=== PATIENT | female | born 1990 | race Caucasian/White ===

== ENCOUNTER → 2019-06-04 | Outpatient (CLI) | payer OTHER ==
--- NOTE | 2019-06-04 15:31 | US ---
EXAMINATION TYPE: US thyroid st tissue head/neck DATE OF EXAM: 06/04/2019 COMPARISON: 11/16/2015 CLINICAL HISTORY: E04.1 thyroid nodule, G43.90 migraines. Patient states ventura's, not on meds, f/ u exam GLAND SIZE: Right Lobe: 5.2 x 1.7 x 1.6 cm Overall Parenchyma: homogenous Left Lobe: 5.2 x 1.2 x 1.5 cm Overall Parenchyma: homogeneous Isthmus Thickness: 0.2 cm NODULES RIGHT: # of nodules measured on right: very tiny subcentimeter areas seen but not fully assessed, l argest = 0.5cm LEFT: # of nodules measured on left: 0 ISTHMUS: # of nodules measured in the isthmus: 0 Bilateral neck scanned, no evidence of lymphadenopathy. IMPRESSION: Thyromegaly with subcentimeter right-sided thyroid nodules but no nodule seen 1 cm or greater.
--- NOTE | 2019-06-04 16:02 | CT ---
EXAMINATION TYPE: CT brain wo/w con DATE OF EXAM: 06/04/2019 COMPARISON: None HISTORY: migraines, dizziness CT DLP: 2321 mGycm Automated Exposure Control for Dose Reduction was Utilized. TECHNIQUE: CT scan of the head is performed with IV contrast.,CT scan of the head is performed withou t and with with IV Contrast, patient injected with 100 mL of Isovue 300. CLINICAL HISTORY: COMPARISON: None. FINDINGS: Noncontrast images show no acute intracranial hemorrhage or midline shift. The ventricles and sulci are within normal limits in size. Postcontrast images show no suspicious enhancing intrapa renchymal mass. The globes are intact and the visualized sinuses are clear. Cerebellar tonsils low-ly ing in position. IMPRESSION: 1. Low-lying cerebellar tonsils. Recommend MRI to assess for Chiari malformation.
== END | disposition home or self-care (01) ==
LOC: RADUSMAIN 14:41
PROVIDERS: ATTEND Family Medicine
DX: E01.0 Iodine-deficiency related diffuse (endemic) goiter (principal); G43.909 Migraine, unspecified, not intractable, without status migrainosus
CPT/HCPCS: 76536; 70470; Q9967

== ENCOUNTER → 2019-10-14 | Outpatient (CLI) | payer OTHER ==
--- NOTE | 2019-10-14 20:36 | MR ---
EXAMINATION TYPE: MR brain wo/w con DATE OF EXAM: 10/14/2019 COMPARISON: CT brain June 04, 2019. HISTORY: Migraines, dizziness, nausea, compression of brain, possible Chiari Malformation. Abnormal C T. TECHNIQUE: Multiplanar, multisequence images of the brain and brainstem is performed without and with IV contras t, utilizing 7 mL intravenous Gadavist . FINDINGS: Diffusion weighted images demonstrate no evidence of a recent infarct or other diffusion ab normality. There is no extra-axial fluid collection or significant white matter signal abnormality. The ventricular system and cisternal spaces are normal in size and appearance. The brain volume is age appropriate. Midline structures demonstrate normal morphology. Slightly low-lying right cerebellar tonsil but no g reater than 5 mm inferior descent below foramen magnum to suggest Chiari type I malformation. The cr aniocervical junction appears within normal limits. Post contrast images demonstrate no abnormal enh ancement. The dural venous sinuses appear patent. The visualized sinuses are clear and the globes are intact. IMPRESSION: Fairly unremarkable study. No significant white matter changes or Chiari type I malformat ion
== END ==
LOC: RADMRIMAIN 18:47
PROVIDERS: ATTEND Family Medicine
DX: G43.909 Migraine, unspecified, not intractable, without status migrainosus (principal); G93.5 Compression of brain
CPT/HCPCS: 70553; A9585

== ENCOUNTER 2021-10-07 15:47 | Emergency (ER) | payer OTHER ==
[2021-10-07 15:53] VITALS: BP 129/80; PULSE 93; RESP 20; TEMP 98.4
[2021-10-07] MEDS ORDERED: CEPHALEXIN 500 MG CAP PO STA (16:17)
[2021-10-07] MEDS ORDERED: DIPH,PERTUS(ACELL)TETVAC-LF 0.5 ML VIAL IM ONE (16:17)
[2021-10-07] MEDS ORDERED: ACETAMINOPHEN TAB 500 MG TAB PO STA (16:18)
[2021-10-07] MEDS ORDERED: IBUPROFEN 600 MG TAB PO STA (16:18)
--- NOTE | 2021-10-07 16:23 | ED ---
Upper Extremity HPI - General Chief Complaint: Extremity Injury, Upper Stated Complaint: Lt hand smashed Time Seen by Provider: 10/07/21 16:14 Source: patient, RN notes reviewed Mode of arrival: ambulatory Limitations: no limitations - History of Present Illness Complaint: Injury to:: left, finger (Thumb) Onset/Timin -: hour(s) Other Extremity Injury: Fingers: Left (Left thumb crush injury between a wood and a piece of metal at home.) Other Injuries: none Handedness: right Place: home Severity scale (1-10): 6 Improves With: immobilization Worsens With: movement of extremity, other (Palpation) Context: direct blow Associated Symptoms: denies other symptoms Treatments Prior to Arrival: other (None, tetanus status unknown) - Related Data Previous Rx's Medication Instructions Recorded Cephalexin [Keflex] 500 mg PO Q6HR #40 cap 10/07/21 HYDROcodone/APAP 5-325MG [[place] 1 tab PO Q6HR PRN 3 Days #12 tab 10/07/21 5-325] Naproxen [Naprosyn] 375 mg PO Q12HR PRN #20 tablet 10/07/21 Allergies Allergy/AdvReac Type Severity Reaction Status Date / Time No Known Allergies Allergy Verified 10/07/21 15:52 Review of Systems ROS Statement: Those systems with pertinent positive or pertinent negative responses have been documented in the HPI. ROS Other: All systems not noted in ROS Statement are negative. Past Medical History Past Medical History: No Reported History Past Surgical History: Section Past Psychological History: No Psychological Hx Reported Smoking Status: Current every day smoker Past Alcohol Use History: None Reported Past Drug Use History: None Reported General Exam Limitations: no limitations General appearance: in distress (Minimal secondary to left thumb injury) Head exam: Present: atraumatic, normocephalic, normal inspection Eye exam: Present: normal appearance, EOMI Neck exam: Present: normal inspection, full ROM Respiratory exam: Present: normal lung sounds bilaterally. Absent: respiratory distress, wheezes, rales, rhonchi, stridor Cardiovascular Exam: Present: regular rate, normal rhythm, normal heart sounds. Absent: systolic murmur, diastolic murmur, rubs, gallop, clicks GI/Abdominal exam: Present: soft. Absent: tenderness Extremities exam: Present: full ROM (Superficial laceration, no foreign body, capillary refill less than 2 seconds, full tendon strength in all planes), normal capillary refill, other (Patient has a superficial laceration just proximal to the nail plate on the dorsum of the left thumb. The nail plate itself seems to be adhered adequately. Patient has thick nail congolese on. It stent of some bronchial hematomas difficult to ascertain. ) Course Vital Signs 10/07/21 15:50 Temperature 98.4 F Pulse Rate 93 Respiratory 20 Rate Blood Pressure 129/80 O2 Sat by Pulse 96 Oximetry Procedures - Procedures Initial comment: Wound cleansed thoroughly. No repair indicated at this time. Antibiotic ointment applied. Sterile dressing applied. Finger splint applied. Distal neurovascular status intact both pre-and post-application. - Orthopedic Splinting/Casting Injury #1 Side: left Upper Extremity Injury Location: finger (Left thumb) Additional Comments: Neurovascular status intact pre-and post-application Medical Decision Making - Medical Decision Making Crush injury to left thumb. Differential would include open fracture which does not appear to be the case as the wound is superficial just proximal to the nail plate. Nail plate is adhered adequately. Subungual hematoma difficult to ascertain due to nail congolese. Full tendon strength. Tetanus will be updated. Cephalexin 500 mg by mouth. Tylenol, ibuprofen, placed him x-rays, reassessment. No other injuries Patient has evidence of a transverse distal tuft fracture which is minimally displaced. Patient will be treated with prophylactic antibiotics, wound cleansing, splinting, and follow-up with the hand surgeon. Patient to call him Sunday morning. Wound care discussed until then. Patient voiced understanding of instructions. All questions answered. Patient was told to return to the ER for any signs or symptoms worsen. Told to return immediately if any other problems arise. All questions answered. Treatment plan discussed. Patient in agreement Every effort has been made to ensure accuracy of this dictation. However, due to the limitations of electronic medical records and dictation devices, errors in charting still occur. Supervisors Dr. Vicente Disposition Clinical Impression: Open fracture of left thumb, Posterior dislocation of elbow Narrative: Open fracture, left thumb with damage to the nail plate matrix area Disposition: HOME SELF-CARE Condition: Stable Instructions (If sedation given, give patient instructions): Thumb Fracture (ED), Acute Wound Care (ED) Additional Instructions: Wash the wound daily with warm soap and water. Apply thin layer of antibiotic ointment and cover with a sterile dressing. Wear the finger splint until follow-up with orthopedics. Take the antibiotics as directed. Elevate the affected injury as much as possible. No lifting or use with the right hand until cleared by orthopedics Return to the ER immediately if any symptoms worsen, new symptoms arise, or any other problems develop. Prescriptions: Cephalexin [Keflex] 500 mg PO Q6HR #40 cap Naproxen [Naprosyn] 375 mg PO Q12HR PRN #20 tablet PRN Reason: Pain HYDROcodone/APAP 5-325MG [[place] 5-325] 1 tab PO Q6HR PRN 3 Days #12 tab PRN Reason: Pain Is patient prescribed a controlled substance at d/c from ED?: Yes When asked, does pt state using other controlled substances?: No If prescribed controlled substance>3 days was MAPS reviewed?: Prescribed <3 Days Referrals: Otilia Thompson DO [Doctor of Osteopathic Medicine] - 10/10/21 8:00 am Time of Disposition: 16:48
--- NOTE | 2021-10-07 16:39 | XR ---
EXAMINATION TYPE: XR finger LT DATE OF EXAM: 10/07/2021 CLINICAL HISTORY: pain TECHNIQUE: 3 views of the left first digit are submitted. COMPARISON: None FINDINGS: Mildly displaced subungual tuft fracture. Soft tissues swelling noted. No additional fractu res seen. Joint spaces are well-preserved. Correlate for soft tissue injury. IMPRESSION: As above
[2021-10-07] MEDS ORDERED: BACITRACIN OINT 1 EACH PACKET TOPICAL ONE (16:45)
[2021-10-07] MEDS ORDERED: ONDANSETRON 4 MG ODT STARTER PACK 2 TAB BTL PO STA (16:56)
== END 2021-10-07 17:20 | disposition home or self-care (01) ==
LOC: EC 15:47
DX: S62.502A Fracture of unspecified phalanx of left thumb, initial encounter for closed fracture (principal); S53.125A Posterior dislocation of left ulnohumeral joint, initial encounter; Z23 Encounter for immunization; F17.200 Nicotine dependence, unspecified, uncomplicated; W23.1XXA Caught, crushed, jammed, or pinched between stationary objects, initial encounter
CPT/HCPCS: 73140; 90715; 29125; 99283; 90471; S0119